=== PATIENT | male | born 1955 | race Caucasian/White ===

== ENCOUNTER 2021-12-11 07:34 | Day surgery (SDC) | payer MEDICAID, MEDICARE, OTHER ==
[~2021-12-11 07:34] MED LIST: Acetaminophen 500 MG Tab PO ONE; Dextrose 5%-Lactated Ringers 1,000 ML IV SCH; ceFAZolin 2 GM in Premix Bag 1 BAG IV ONE
[2021-12-11] MEDS ORDERED: Propofol 200 MG/20 ML SDV ONE ×3 (07:43→10:56)
[2021-12-11] MEDS ORDERED: Midazolam 1 MG/ML 2 ML SDV ONE (07:43)
[2021-12-11] MEDS ORDERED: fentaNYL 100 MCG/2 ML SDV ONE ×2 (07:43→10:35)
[2021-12-11] MEDS ORDERED: Dextrose 5%-Lactated Ringers 1,000 ML IV SCH (08:00)
[2021-12-11] MEDS ORDERED: Acetaminophen 500 MG Tab PO ONE (08:00)
[2021-12-11] MEDS ORDERED: ceFAZolin 2 GM in Premix Bag 1 BAG IV ONE (09:00)
[2021-12-11] MEDS ORDERED: Ketorolac 30 MG/ML SDV ONE (09:53)
[2021-12-11] MEDS: Lidocaine 1% with EPINEPHrine 1:100,000 50 ML MDV ONE ×2 (10:06→10:09)
[2021-12-11] MEDS: Bupivacaine 0.5% 50 ML MDV ONE ×2 (10:06→10:09)
[2021-12-11] MEDS ORDERED: oxyCODONE 5 MG Tab PO ONE (13:10)
== END 2021-12-11 13:39 | disposition home or self-care (01) ==
LOC: JP.SDS 07:34
PROVIDERS: ATTEND Surgery
DX: N43.3 Hydrocele, unspecified (principal); K40.90 Unilateral inguinal hernia, without obstruction or gangrene, not specified as recurrent; N43.41 Spermatocele of epididymis, single; E11.9 Type 2 diabetes mellitus without complications
CPT/HCPCS: A9270-GY; C1713; C1781; J0690; J1885; J2020; J2250; J2704; J3010; J3490; J7121

== ENCOUNTER 2022-11-05 06:57 | Day surgery (SDC) | payer MEDICARE ==
[2022-11-05] MEDS ORDERED: fentaNYL 50 MCG/ML SDV ONE (07:05)
[2022-11-05] MEDS ORDERED: Midazolam 1 MG/ML 2 ML SDV ONE (07:05)
[2022-11-05] MEDS ORDERED: Propofol 200 MG/20 ML SDV ONE (07:05)
[2022-11-05] MEDS ORDERED: Dextrose 5%-Lactated Ringers 1,000 ML IV SCH (07:30)
== END 2022-11-05 10:30 | disposition home or self-care (01) ==
LOC: JP.SDS 06:57
PROVIDERS: ATTEND Surgery
DX: Z12.11 Encounter for screening for malignant neoplasm of colon (principal); K57.30 Diverticulosis of large intestine without perforation or abscess without bleeding; K64.8 Other hemorrhoids; K21.9 Gastro-esophageal reflux disease without esophagitis; E11.9 Type 2 diabetes mellitus without complications; Z80.0 Family history of malignant neoplasm of digestive organs; Z79.899 Other long term (current) drug therapy
CPT/HCPCS: G0105; J2250; J2704; J3010; J7121